=== PATIENT | male | born 1995 | race Caucasian/White ===

== ENCOUNTER 2025-05-30 15:04 | Inpatient (IN) | payer OTHER ==
[~2025-05-30] VITALS: Ht 188 cm; Wt 79.4 kg
[2025-05-30 15:43] LABS: PLATELET COUNT (AUTO) 239 K/uL (150-450); RED BLOOD CELL COUNT(AUTO) 5.13 MIL/uL (4.5-6.0); RED CELL DISTRIBUTION WIDTH 14.1 % (11.5-15.0); WHITE BLOOD COUNT (AUTO) 5.4 K/uL (4.3-11.0)
[2025-05-30 15:53] LABS: CALCIUM, SERUM 9.0 mg/dL (8.5-10.1); CREATININE 1.1 mg/dL (0.6-1.3); SODIUM SERUM 141.0 mmol/L (136-145); UREA NITROGEN, BLOOD 11.0 mg/dL (7-18)
[2025-05-30 15:56] LABS: INR 1.13 (0.91-1.10)
[2025-05-30] MEDS ORDERED: PROPOFOL 20 ML IV ONE (16:01)
[2025-05-30] MEDS ORDERED: VENL37.55 PO (16:12)
[2025-05-30] MEDS: KETAMINE HCL(200MG/20ML) 10 MG/ML VIAL IV ONE (16:36)
[2025-05-30] MEDS: PROPOFOL 1,000 MG/100 ML BOTTLE IV ONE (16:59)
[2025-05-30] MEDS ORDERED: ONDANSETRON HCL/PF 4 MG/2 ML VIAL IVP PRN (17:30)
[2025-05-30] MEDS ORDERED: MORPHINE SULFATE INJ 2 MG/ML DISP.SYRIN IV PRN (17:30)
[2025-05-30] MEDS ORDERED: MAGNESIUM HYDROXIDE 30 ML UDC PO PRN (17:30)
[2025-05-30] MEDS ORDERED: HYDROCODONE/APAP 5/325MG TABLET PO PRN (17:30)
[2025-05-30] MEDS ORDERED: ACETAMINOPHEN 325 MG TABLET PO PRN (17:30)
[2025-05-30] MEDS ORDERED: MORPHINE SULFATE INJ 2 MG/ML DISP.SYRIN ONE (17:33)
[2025-05-30] MEDS: MORPHINE SULFATE INJ 2 MG/ML DISP.SYRIN IV ONE (17:35)
[2025-05-30] MEDS ORDERED: HYDROCODONE/APAP 5/325MG TABLET ONE ×3 (18:57→21:20)
[2025-05-30] MEDS: HYDROCODONE/APAP 5/325MG TABLET PO ONE (21:19)
[2025-05-30] MEDS: VENLAFAXINE 25 MG TABLET PO ONE (22:45)
[2025-05-31] MEDS ORDERED: HYDROCODONE/APAP 5/325MG TABLET ONE (03:58)
[2025-05-31] MEDS: HYDROCODONE/APAP 5/325MG TABLET PO PRN (04:00)
[2025-05-31 06:54] LABS: PLATELET COUNT (AUTO) 199 K/uL (150-450); RED BLOOD CELL COUNT(AUTO) 5.03 MIL/uL (4.5-6.0); RED CELL DISTRIBUTION WIDTH 14.4 % (11.5-15.0); WHITE BLOOD COUNT (AUTO) 6.3 K/uL (4.3-11.0)
[2025-05-31 07:05] LABS: CALCIUM, SERUM 8.8 mg/dL (8.5-10.1); CREATININE 1.2 mg/dL (0.6-1.3); PHOSPHORUS 4.2 mg/dL (2.5-4.9); SODIUM SERUM 140.0 mmol/L (136-145); UREA NITROGEN, BLOOD 12.0 mg/dL (7-18)
[2025-05-31] MEDS: PANTOPRAZOLE 40 MG TABLET.DR PO SCH (07:30)
[2025-05-31 10:30] VITALS: BP 111/79; TEMP 98.1; O2SAT 98
[2025-05-31] MEDS: ENOXAPARIN SODIUM 40 MG/0.4 ML DISP.SYRIN SQ SCH (11:52)
[2025-05-31] MEDS: VENLAFAXINE XR 37.5 MG CAP.SR.24H PO SCH (11:56)
[2025-05-31 16:00] VITALS: BP 115/80; TEMP 98.1; O2SAT 99
[2025-05-31] MEDS: HYDROCODONE/APAP 10/325MG TABLET PO PRN (18:20)
[2025-05-31 20:00] VITALS: BP 120/80; TEMP 97.5; O2SAT 98
[2025-06-01 06:30] LABS: PLATELET COUNT (AUTO) 190 K/uL (150-450); RED BLOOD CELL COUNT(AUTO) 4.96 MIL/uL (4.5-6.0); RED CELL DISTRIBUTION WIDTH 14.0 % (11.5-15.0); WHITE BLOOD COUNT (AUTO) 5.0 K/uL (4.3-11.0)
[2025-06-01 06:35] LABS: CALCIUM, SERUM 8.6 mg/dL (8.5-10.1); CREATININE 1.0 mg/dL (0.6-1.3); PHOSPHORUS 4.1 mg/dL (2.5-4.9); SODIUM SERUM 139.0 mmol/L (136-145); UREA NITROGEN, BLOOD 12.0 mg/dL (7-18)
[2025-06-01 09:02] VITALS: BP 118/79; TEMP 97.5; O2SAT 98
[2025-06-01 16:10] VITALS: BP 129/86; TEMP 97.7; O2SAT 98
[2025-06-01 20:00] VITALS: BP 136/80; TEMP 97.5; O2SAT 97
[2025-06-02 08:27] VITALS: BP 126/84; TEMP 97.9; O2SAT 98
[2025-06-02] MEDS ORDERED: HYDR-3972 PO ×2 (11:21→20:18)
[2025-06-02 16:16] VITALS: BP 139/78; TEMP 98.1; O2SAT 99
== END 2025-06-02 19:28 | disposition home or self-care (01) | DRG 201 ==
LOC: ER 15:15 → TELE IN 22:53 → TELE1 05-31 07:44 → MEDSG1 05-31 09:52 → MED 05-31 10:29
PROVIDERS: ADMIT Nurse Practitioner Family; ATTEND Nurse Practitioner Family
PROC: 0W9930Z Drainage of Right Pleural Cavity with Drainage Device, Percutaneous Approach (ICD-10-PCS; principal; 2025-05-30)
DX: J93.83 Other pneumothorax (principal); F41.9 Anxiety disorder, unspecified; E87.6 Hypokalemia; F12.90 Cannabis use, unspecified, uncomplicated; Z79.899 Other long term (current) drug therapy
CPT/HCPCS: 36415; 71045-TC; 71250-TC; 80048-TC; 83735-TC; 84100-TC; 85025-TC; 85610-TC; 86850-TC; A6223; A6403; G0378; J1650; J2270; J2704

== ENCOUNTER 2025-06-10 12:24 | Inpatient (IN) | payer OTHER ==
[~2025-06-10] VITALS: Ht 188 cm; Wt 90.7 kg
[~2025-06-10 12:24] MED LIST: HYDR-3972 PO; VENL37.55 PO
[2025-06-10 13:58] LABS: CALCIUM, SERUM 9.7 mg/dL (8.5-10.1); CREATININE 1.1 mg/dL (0.6-1.3); SODIUM SERUM 138.0 mmol/L (136-145); UREA NITROGEN, BLOOD 18.0 mg/dL (7-18)
[2025-06-10] MEDS ORDERED: TEMAZEPAM 15 MG CAPSULE PO PRN (14:00)
[2025-06-10] MEDS ORDERED: MAGNESIUM HYDROXIDE 30 ML UDC PO PRN (14:00)
[2025-06-10] MEDS ORDERED: Z GUARD REMEDY 4 OZ OINT TP PRN (14:00)
[2025-06-10] MEDS ORDERED: ONDANSETRON HCL/PF 4 MG/2 ML VIAL IVP PRN (14:00)
[2025-06-10] MEDS ORDERED: MAG HYDROX/AL HYDROX/SIMETH 30 ML UDC PO PRN (14:00)
[2025-06-10] MEDS ORDERED: ACETAMINOPHEN 325 MG TABLET PO PRN (14:00)
[2025-06-10 14:01] LABS: PLATELET COUNT (AUTO) 238 K/uL (150-450); RED BLOOD CELL COUNT(AUTO) 5.16 MIL/uL (4.5-6.0); RED CELL DISTRIBUTION WIDTH 13.8 % (11.5-15.0); WHITE BLOOD COUNT (AUTO) 7.5 K/uL (4.3-11.0)
[2025-06-10 14:04] LABS: ASPARTATE AMINOTRANSFERASE 160.0 U/L (15-37); TOTAL PROTEIN, SERUM 7.4 g/dL (6.4-8.2)
[2025-06-10] MEDS ORDERED: HYDROCODONE/APAP 5/325MG TABLET ONE (15:36)
[2025-06-10] MEDS: HYDROCODONE/APAP 5/325MG TABLET PO PRN (15:39)
[2025-06-10 20:00] VITALS: BP 122/75; TEMP 97.7; O2SAT 99
[2025-06-10 20:15] VITALS: BP 122/75; TEMP 97.7; O2SAT 99
[2025-06-11] VITALS (7 sets, daily range): BP systolic 103–125; BP diastolic 58–80; TEMP 97.3–97.9; O2SAT 98–100
[2025-06-11] MEDS: MORPHINE SULFATE INJ 2 MG/ML DISP.SYRIN ONE (02:16)
[2025-06-11] MEDS: MORPHINE SULFATE INJ 2 MG/ML DISP.SYRIN IVP PRN (02:26)
[2025-06-11 06:09] LABS: PLATELET COUNT (AUTO) 216 K/uL (150-450); RED BLOOD CELL COUNT(AUTO) 4.98 MIL/uL (4.5-6.0); RED CELL DISTRIBUTION WIDTH 13.8 % (11.5-15.0); WHITE BLOOD COUNT (AUTO) 5.3 K/uL (4.3-11.0)
[2025-06-11 06:21] LABS: CALCIUM, SERUM 9.0 mg/dL (8.5-10.1); CREATININE 1.1 mg/dL (0.6-1.3); PHOSPHORUS 4.7 mg/dL (2.5-4.9); SODIUM SERUM 141.0 mmol/L (136-145); UREA NITROGEN, BLOOD 21.0 mg/dL (7-18)
[2025-06-11 06:22] LABS: INR 1.1 (0.91-1.10)
[2025-06-11] MEDS: PANTOPRAZOLE 40 MG TABLET.DR PO SCH (07:30)
[2025-06-11] MEDS ORDERED: HYDROMORPHONE 1 MG/1 ML DISP.SYRIN IV PRN (12:00)
[2025-06-12] VITALS (41 sets, daily range): BP systolic 115–147; BP diastolic 64–116; TEMP 97.5; O2SAT 97–100
[2025-06-12] MEDS: MIDAZOLAM HCL 2 MG/2ML VIAL IV ONE (10:11)
[2025-06-12] MEDS: FENTANYL PF 100MCG/2ML AMPUL IV ONE (10:11)
[2025-06-12] MEDS: PROPOFOL 200 MG/20 ML VIAL IV ONE (11:23)
[2025-06-12] MEDS: HYDROMORPHONE 1 MG/1 ML DISP.SYRIN IV PRN (11:24)
[2025-06-12] MEDS: FUROSEMIDE 20 MG/2 ML VIAL IV ONE (11:24)
[2025-06-12] MEDS: POTASSIUM CHLORIDE 20 MEQ TAB.PRT.SR PO ONE (11:24)
== END 2025-06-12 20:32 | disposition short-term general hospital (02) | DRG 201 ==
LOC: ER 12:31 → TELE 16:56 → ICU 06-12 10:03 → UNDODISIN 06-12 20:30
PROVIDERS: ADMIT Nurse Practitioner Acute Care; ATTEND Nurse Practitioner Acute Care
PROC: 0W9930Z Drainage of Right Pleural Cavity with Drainage Device, Percutaneous Approach (ICD-10-PCS; principal; 2025-06-12)
DX: J93.83 Other pneumothorax (principal); F41.9 Anxiety disorder, unspecified
CPT/HCPCS: 36415; 71045-TC; 71046; 80048-TC; 80053-TC; 83735-TC; 84100-TC; 85025-TC; 85610-TC; 85730-TC; 86850-TC; 87081-TC; A4223; G0378; J1171; J1938; J2250; J2270; J3010; J7120